=== PATIENT | male | born 1980 | race African-American/Black ===

== ENCOUNTER 2024-09-22 15:09 | Observation (INO) ==
[2024-09-22] MEDS ORDERED: IOPAMIDOL 100 ML BOTTLE IV ONE (15:10)
[2024-09-22] MEDS: KETOROLAC 30 MG/ML VIAL IV ONE (15:47)
[2024-09-22 15:58] LABS: Basophils # (Auto) 0.02 K/mcL (0.00-0.30); Basophils % (Auto) 0.3 % (0.0-2.0); Eosinophils # (Auto) 0.07 K/mcL (0.00-0.70); Eosinophils % (Auto) 1.1 % (0.0-7.0); Hematocrit 44.5 % (40.1-51.0); Hemoglobin 14.5 g/dL (13.7-17.5); Lymphocytes # (Auto) 1.58 K/mcL (1.50-4.80); Lymphocytes % (Auto) 25.6 % (15.5-49.0); Mean Cell Volume 85.6 fL (80.0-100.0); Mean Corpuscular HGB Conc 32.6 g/dL (31.0-36.0); Mean Platelet Volume 10.8 fL (8.8-12.5); Monocytes # (Auto) 0.51 K/mcL (0.10-0.90); Monocytes % (Auto) 8.3 % (1.0-12.0); Neutrophils % (Auto) 64.4 % (38.0-78.0); Platelet Count 190 K/mcL (140-440); Red Cell Distribution Width 12.1 % (11.5-14.5); WBC 6.2 K/mcL (4.5-11.0)
[2024-09-22 16:19] LABS: ALT/SGPT 24 U/L (<40); AST/SGOT 36 U/L (<40); Albumin 4.3 gm/dL (3.2-5.2); Albumin/Globulin Ratio 1.2 (1.0-2.3); Alkaline Phosphatase 74 U/L (39-117); Bilirubin,Total < 0.2 mg/dL (0.1-1.0); Blood Urea Nitrogen 15 mg/dL (6-20); Calcium 9.5 mg/dL (8.6-10.4); Carbon Dioxide 25 mmol/L (22-30); Chloride 101 mmol/L (96-108); Globulin 3.5 gm/dL (2.2-3.7); Glomerular Filtration Rate 107; Glucose 104 mg/dL (70-105); Sodium 137 mmol/L (133-145)
[2024-09-22 16:55] LABS: Appearance,Urine Clear (Clear); Bacteria,Urine 0 /hpf (0); Bilirubin,Urine Negative (Negative); Color,Urine Yellow; Glucose,Urine (UA) Negative (Negative); Ketones,Urine Negative (Negative); Leukocyte Esterase,Urine Negative /uL (Negative); Nitrate,Urine Negative (Negative); Protein,Urine Negative (Negative); Specific Gravity,Urine <= 1.005 (1.000-1.035); Urine Blood Trace-lysed ery/mcL (Negative); Urine RBC 0 /hpf (0-3); Urine Squamous Epithelial Cell 0 /hpf (0-4); Urine WBC 0 /hpf (0-4); Urobilinogen,Urine Normal
[2024-09-22] MEDS ORDERED: morphine 2 MG/ML VIAL IV PRN (18:22)
[2024-09-22] MEDS ORDERED: ONDANSETRON 4 MG/2 ML VIAL IV PRN (18:22)
[2024-09-22] MEDS: PIPERACILLIN SODIUM/TAZOBACTAM 3.375 GM in DEXTROSE 5% IN WATER 100 ML IV SCH ×2 (18:41→23:39)
[2024-09-22] MEDS: 0.9 % SODIUM CHLORIDE 1,000 ML IV SCH (18:44)
[2024-09-22] MEDS: ACETAMINOPHEN 325 MG TABLET PO PRN (20:03)
[2024-09-22] MEDS: PIPERACILLIN SODIUM/TAZOBACTAM 3.375 GM in DEXTROSE 5% IN WATER 50 ML IV ONE (20:04)
[2024-09-22] MEDS: ACETAMINOPHEN 1,000 MG/100 ML BAG IV SCH (21:30)
[2024-09-23] MEDS: ACETAMINOPHEN 1,000 MG/100 ML BAG IV ONE (02:50)
[2024-09-23 06:57] LABS: Basophils # (Auto) 0.03 K/mcL (0.00-0.30); Basophils % (Auto) 0.7 % (0.0-2.0); Eosinophils # (Auto) 0.08 K/mcL (0.00-0.70); Eosinophils % (Auto) 1.7 % (0.0-7.0); Hematocrit 43.4 % (40.1-51.0); Hemoglobin 14.3 g/dL (13.7-17.5); Lymphocytes # (Auto) 1.44 K/mcL (1.50-4.80); Lymphocytes % (Auto) 31.4 % (15.5-49.0); Mean Cell Volume 85.4 fL (80.0-100.0); Mean Corpuscular HGB Conc 32.9 g/dL (31.0-36.0); Mean Platelet Volume 10.7 fL (8.8-12.5); Monocytes # (Auto) 0.49 K/mcL (0.10-0.90); Monocytes % (Auto) 10.7 % (1.0-12.0); Neutrophils % (Auto) 55.3 % (38.0-78.0); Platelet Count 181 K/mcL (140-440); RBC 5.08 M/mcL (4.63-6.08); Red Cell Distribution Width 12.3 % (11.5-14.5); WBC 4.6 K/mcL (4.5-11.0)
[2024-09-23 07:09] LABS: ALT/SGPT 19 U/L (<40); AST/SGOT 27 U/L (<40); Albumin 3.8 gm/dL (3.2-5.2); Albumin/Globulin Ratio 1.2 (1.0-2.3); Alkaline Phosphatase 63 U/L (39-117); Bilirubin,Direct < 0.2 mg/dL (0-0.3); Bilirubin,Total 0.4 mg/dL (0.1-1.0); Blood Urea Nitrogen 12 mg/dL (6-20); Carbon Dioxide 25 mmol/L (22-30); Chloride 103 mmol/L (96-108); Globulin 3.1 gm/dL (2.2-3.7); Glomerular Filtration Rate 102; Glucose 96 mg/dL (70-105); Lactate Dehydrogenase 184 U/L (135-225); Phosphorous 3.7 mg/dL (2.5-4.5); Potassium 4.1 mmol/L (3.3-5.1); Sodium 137 mmol/L (133-145); Triglycerides 89 mg/dL (<150); Uric Acid 4.8 mg/dL (2.5-8.0)
[2024-09-23] MEDS ORDERED: LIDOCAINE 2% PF 5 ML VIAL ONE (07:58)
[2024-09-23] MEDS ORDERED: GLYCOPYRROLATE 0.2 MG/ML VIAL IV ONE (07:58)
[2024-09-23] MEDS ORDERED: DEXAMETHASONE 10 MG/ML VIAL ONE (07:58)
[2024-09-23] MEDS ORDERED: PROPOFOL 200 MG/20 ML VIAL IV ONE (07:58)
[2024-09-23] MEDS ORDERED: ONDANSETRON 4 MG/2 ML VIAL ONE (07:58)
[2024-09-23] MEDS ORDERED: FAMOTIDINE/PF 20 MG/2 ML VIAL IV ONE (07:58)
[2024-09-23] MEDS ORDERED: ROCURONIUM 10 MG/ML ML IV ONE (07:58)
[2024-09-23] MEDS ORDERED: KETAMINE 50 MG/ML Syringe IV ONE (08:02)
[2024-09-23] MEDS ORDERED: fentaNYL 100 MCG/2 ML VIAL ONE ×2 (08:02→13:09)
[2024-09-23] MEDS ORDERED: MAGNESIUM SULFATE 2 GM/50 ML BAG IV ONE (08:04)
[2024-09-23] MEDS ORDERED: IPRATROPIUM/ALBUTEROL 3 ML AMPUL.NEB NEB PRN ×2 (11:30→13:14)
[2024-09-23] MEDS ORDERED: SCOPOLAMINE 1 PATCH PATCH TOPICAL PRN (11:30)
[2024-09-23] MEDS ORDERED: MEPERIDINE 25 MG/ML VIAL IV PRN (13:14)
[2024-09-23] MEDS ORDERED: ONDANSETRON 4 MG/2 ML VIAL IV PRN (13:14)
[2024-09-23] MEDS ORDERED: fentaNYL 100 MCG/2 ML VIAL IV PRN (13:14)
[2024-09-23] MEDS ORDERED: KETOROLAC 30 MG/ML VIAL IV PRN (13:14)
[2024-09-23] MEDS ORDERED: NALOXONE HCL 0.4 MG/ML VIAL IV PRN (13:14)
[2024-09-23] MEDS ORDERED: METHOCARBAMOL 1,000 MG/10 ML VIAL IV PRN (13:14)
[2024-09-23] MEDS ORDERED: LACTATED RINGERS 250 ML IV PRN (13:14)
[2024-09-23] MEDS ORDERED: HYDROmorphone 0.5 MG/0.5 ML SYRINGE IV PRN (13:14)
[2024-09-23] MEDS ORDERED: diphenhydrAMINE 50 MG/ML VIAL IV PRN (13:14)
[2024-09-23] MEDS ORDERED: SUGAMMADEX SODIUM 200 MG/2 ML VIAL IV ONE (13:29)
[2024-09-23] MEDS: LACTATED RINGERS 1,000 ML IV SCH (15:24)
[2024-09-23] MEDS: oxyCODONE IR 5 MG TABLET PO PRN (15:46)
[2024-09-24 06:47] LABS: ALT/SGPT 15 U/L (<40); AST/SGOT 22 U/L (<40); Albumin 3.6 gm/dL (3.2-5.2); Albumin/Globulin Ratio 1.2 (1.0-2.3); Alkaline Phosphatase 55 U/L (39-117); Bilirubin,Direct < 0.2 mg/dL (0-0.3); Bilirubin,Total 0.3 mg/dL (0.1-1.0); Blood Urea Nitrogen 11 mg/dL (6-20); Calcium 8.8 mg/dL (8.6-10.4); Carbon Dioxide 22 mmol/L (22-30); Chloride 105 mmol/L (96-108); Glomerular Filtration Rate 107; Glucose 129 mg/dL (70-105); Lactate Dehydrogenase 202 U/L (135-225); Potassium 4.6 mmol/L (3.3-5.1); Sodium 135 mmol/L (133-145); Triglycerides 53 mg/dL (<150); Uric Acid 2.6 mg/dL (2.5-8.0)
[2024-09-24 06:48] LABS: Basophils # (Auto) 0.01 K/mcL (0.00-0.30); Basophils % (Auto) 0.1 % (0.0-2.0); Eosinophils # (Auto) 0 K/mcL (0.00-0.70); Eosinophils % (Auto) 0 % (0.0-7.0); Hematocrit 40.9 % (40.1-51.0); Hemoglobin 13.4 g/dL (13.7-17.5); Lymphocytes # (Auto) 0.93 K/mcL (1.50-4.80); Lymphocytes % (Auto) 8.7 % (15.5-49.0); Mean Cell Volume 85.6 fL (80.0-100.0); Mean Corpuscular HGB Conc 32.8 g/dL (31.0-36.0); Mean Platelet Volume 10.6 fL (8.8-12.5); Monocytes # (Auto) 0.35 K/mcL (0.10-0.90); Monocytes % (Auto) 3.3 % (1.0-12.0); Neutrophils % (Auto) 87.6 % (38.0-78.0); Platelet Count 209 K/mcL (140-440); RBC 4.78 M/mcL (4.63-6.08); Red Cell Distribution Width 12.2 % (11.5-14.5); WBC 10.7 K/mcL (4.5-11.0)
== END 2024-09-24 14:13 | disposition home or self-care (01) ==
LOC: MEDSUR 15:09 → ED 15:09 → MEDSUR 19:57
PROVIDERS: ADMIT Family Medicine Adult Medicine; ATTEND Family Medicine Adult Medicine
PROC: LAPAPPY (ICD-10-PCS; 2024-09-23 12:45)